=== PATIENT | female | born 1985 | race African-American/Black ===

== ENCOUNTER 2019-12-24 11:45 | Emergency (ER) | payer MEDICAID ==
[~2019-12-24] VITALS: Ht 170.2 cm; Wt 102.3 kg
[2019-12-24] MEDS ORDERED: DULO20CA30 PO (11:48)
[2019-12-24] MEDS ORDERED: GABA-531 PO (11:48)
[2019-12-24] MEDS ORDERED: SULFAMETHOX/TRIMETH DS 800-160 MG/TABLET PO ONE (12:00)
[2019-12-24] MEDS ORDERED: CEPHALEXIN MONOHYDRATE 500 MG CAPSULE PO ONE (12:00)
[2019-12-24] MEDS ORDERED: LIDOCAINE 2% 5 ML JELLY TP ONE (12:00)
[2019-12-24] MEDS ORDERED: POVIDONE-IODINE 10% 15 ML SOLUTION UD TP ONE (12:15)
[2019-12-24 13:26] VITALS: BP 123/77
== END 2019-12-24 13:27 | disposition home or self-care (01) ==
LOC: EMS 11:47
DX: N61.1 Abscess of the breast and nipple (principal); N61.0 Mastitis without abscess; F32.9 Major depressive disorder, single episode, unspecified; Z88.5 Allergy status to narcotic agent
CPT/HCPCS: 10160

== ENCOUNTER 2020-02-21 13:01 | Emergency (ER) | payer MEDICAID ==
[~2020-02-21] VITALS: Ht 170.2 cm; Wt 81.8 kg
[~2020-02-21 13:01] MED LIST: DULO20CA30 PO; GABA-1181 PO
[2020-02-21 13:53] VITALS: BP 123/73
== END 2020-02-21 15:19 | disposition home or self-care (01) ==
LOC: EMS 13:02
DX: J20.9 Acute bronchitis, unspecified (principal); Z20.828 Contact with and (suspected) exposure to other viral communicable diseases; R11.2 Nausea with vomiting, unspecified; R19.7 Diarrhea, unspecified; F12.90 Cannabis use, unspecified, uncomplicated; F32.9 Major depressive disorder, single episode, unspecified; J45.909 Unspecified asthma, uncomplicated
CPT/HCPCS: 71045; 99284; U0003